=== PATIENT | male | born 1955 ===

== ENCOUNTER 2022-09-24 14:56 | Inpatient (IN) | payer MEDICARE ==
[~2022-09-24] VITALS: Ht 172.7 cm; Wt 85.6 kg
[2022-09-24] MEDS ORDERED: INSULANI SC (15:45)
[2022-09-24] MEDS ORDERED: ASPI81CH PO (15:45)
[2022-09-24] MEDS ORDERED: FURO40 PO (15:46)
[2022-09-24] MEDS ORDERED: METO25ER PO (15:47)
[2022-09-24] MEDS ORDERED: SPIR25 PO (15:47)
[2022-09-24] MEDS ORDERED: VALSARTAN40 MG PO (15:48)
[2022-09-24] MEDS ORDERED: 1/2 NS 250ml250 ML (15:48)
--- NOTE | 2022-09-24 16:19 | NUR ---
admittion from [facility] PATIENT ALERT AND ORIENTED X 4. HE AMBULATED TO BED FROM [facility]. HE HAS TWO IV'S TO LEFT ARM AND LEFT HAND. HE HAS HEPARIN DRIP GOING AT 12U/KG/HR AND NITRO DRIB GOING AT 20MCG/HR. HE DOES NOT COMPLAIN OF CHEST PAIN ON ADMIT. HIS BP IS 130/90'S AND PULSE 80'S. AFEBRILE. ON ROOM AIR WITH RR 20 AN D SAO2 AT 96%. HE STATES HE HAS NOT ATE SINCE YESTERDAY AND IS QUITE HUNGRY. LUNGS ARE CLEAR, S1S2 HEART TONES AUSCULTATED SCANT EDEMA TO LE BILAT. PPPX4 EXT. +JUDE. PATIENT TALKING ON PHONE WITH FAMILY. HE PUT IS BROTHER AND SON ON THE INFO TO GIVE LIST. HE WANTS TO BE A FULL CODE AND WANTS EVERYTHING DONE IF NECESSARY STATED BY HIM TO THIS NURSE. HE HAS NOT VOIDED OF YET BUT STATES HE HAS A SLOW STREAM WHEN HE URINATES. HE HAS NUMBNESS TO HIS FEET AND LEFT HAND AT TIMES. HE HAS HAD A SIGNIFICANT CARDIAC HISTORY. DR CAMARA TO COME SEE PATIENT. AWAITING NEW ADMIT ORDERS.
[2022-09-24 17:02] LABS: Hemoglobin 13.5 g/dL (13.5-17.5); Mean Platelet Volume 10.7 fL (9.1-12.4); Platelet Count 173 K/mm3 (150-400)
[2022-09-24 17:21] LABS: Anti-Xa UFH, PHA Monitoring 0.35 IU/mL; International Normalized Ratio 1.04; Prothrombin Time Results 10.9 Sec (9.7-11.5)
[2022-09-24 17:54] LABS: Bun/Creatinine Ratio 15.4 (12.0-20.0); Calcium, Blood 8.5 mg/dL (8.5-10.1); Creatinine, Blood 0.85 mg/dL (0.60-1.20)
--- NOTE | 2022-09-24 18:10 | NUR ---
END OF SHIFT NOTE PATIENT ALERT/O X 4 HE IS MOVING HIMSELF IN BED. HE IS NOW EATTING FOOD. PLAN FOR HIM TO GO TO COACH OPERATOR IN AM AFTER ECHO COMPLETE. HEPARIN DRIP GOING AT 12U/KG/HR AND NITRO STILL AT 20MCG/HR. PHARMACY TO MANAGE HEPARIN DRIP TITRATION RATES. WAITING LAB RESULTS FROM RECIENT LAB DRAW. GLUCOSE WAS 201 AND COVERAGE WAS 2 UNIT/SQ
--- NOTE | 2022-09-24 22:14 | NUR ---
ASSUMED CARE/CALL TO MD ASSUMED CARE AT 1900. PT A/O X 4. COOPERATIVE W/ CARE. NITRO AT 18MCG/MIN. HEPARIN AT 15 UNITS/KG/HR. VSS. ON RA W/ SPO2 GREATER THAN 90%. PT DENIES CHEST PAIN AT THIS TIME. CALL MADE TO DR ALVARADO REGARDING NO NITRO GTT ORDER. ORDERS RECEIVED TO ADD IT TO [facility] BUT TITRATE OFF. NITRO TITRATED OFF AT 1939. CALL MADE TO HOSP REGARDING INSULIN ORDER CHANGE AND BLOOD GLUCOSE LEVEL. ORDER RECEIVED TO HOLD THE HUMALOG AND GIVE 10 UNITS OF LANTUS NOW.
[2022-09-25 01:19] LABS: Hematocrit 38.5 % (37.0-53.0); Hemoglobin 13.5 g/dL (13.5-17.5); Mean Corpuscular HGB 31.3 pg (26.0-34.0); Mean Corpuscular HGB Conc 35.1 g/dL (31.5-36.5); Mean Corpuscular Volume 89 fL (80-100); Mean Platelet Volume 10.8 fL (9.1-12.4); Platelet Count 163 K/mm3 (150-400); RDW Coefficient Variation 13.4 % (11.7-14.2); RDW Standard Deviation 43.8 fL (35.1-46.3); Red Blood Cell Count 4.31 M/mm3 (4.30-5.90)
[2022-09-25 01:39] LABS: Alanine Aminotransfer (ALT/SGP 49 U/L (12-78); Albumin, Blood 2.9 g/dL (3.4-5.0); Alk Phos 105 U/L (50-136); Anion Gap 7 mmol/L (6-16); Aspartate Aminotrans (AST/SGOT 34 U/L (12-37); Bilirubin, Direct 0.2 mg/dL (0.0-0.3); Bilirubin, Indirect 0.8 mg/dL (0.1-0.7); Blood Urea Nitrogen 13 mg/dL (8-24); Bun/Creatinine Ratio 13.8 (12.0-20.0); CHOL/HDL RATIO 3.6; CO2, Blood 25 mmol/L (21-32); Chloride, Blood 106 mmol/L (98-108); Cholesterol 109 mg/dL (50-200); Creatinine, Blood 0.94 mg/dL (0.60-1.20); Globulin, Blood 2.9 g/dL (2.2-4.0); Glomerular Filtration Rate 89 (60-); Glucose, Blood 243 mg/dL (70-99); HDL Cholesterol 30 mg/dL (>39); LDL/HDL RATIO 1.7; Low Density Lipoprotein Chol 51 mg/dL (0-110); Magnesium, Blood 1.7 mg/dL (1.6-2.4); Phosphorus, Blood 2.9 mg/dL (2.5-4.9); Potassium, Blood 3.8 mmol/L (3.5-5.5); Sodium, Blood 138 mmol/L (136-145); Total Protein, Blood 5.8 g/dL (6.4-8.2); Triglycerides 138 mg/dL (30-160); Very Low Density Lipoprot Chol 27 mg/dL (6-32)
[2022-09-25 02:41] LABS: Adenovirus Not Detected (NOT DETECT); Bordetella pertussis Not Detected (NOT DETECT); Chlamydophila pneumoniae Not Detected (NOT DETECT); Coronavirus 229E Not Detected (NOT DETECT); Coronavirus HKU1 Not Detected (NOT DETECT); Coronavirus NL63 Not Detected (NOT DETECT); Coronavirus OC43 Not Detected (NOT DETECT); Human Metapneumovirus Not Detected (NOT DETECT); Human Rhinovirus/Enterovirus Not Detected (NOT DETECT); Influenza A/2009-H1 Not Detected (NOT DETECT); Influenza A/H1 Not Detected (NOT DETECT); Influenza A/H3 Not Detected (NOT DETECT); Influenza B Not Detected (NOT DETECT); Mycoplasma pneumoniae Not Detected (NOT DETECT); Parainfluenza Virus 1 Not Detected (NOT DETECT); Parainfluenza Virus 2 Not Detected (NOT DETECT); Parainfluenza Virus 3 Not Detected (NOT DETECT); Parainfluenza Virus 4 Not Detected (NOT DETECT); Respiratory Syncytial Virus Not Detected (NOT DETECT); SARS-Cov-2 (COVID-19), BioFire Not Detected (NOT DETECT)
--- NOTE | 2022-09-25 04:12 | NUR ---
NECK PAIN/DYSPNEA PATIENT C/O NECK PAIN /10 AND SUDDEN RETURN OF DYSPNEA. BP 162/109 MAP 122, SPO2 99% ON ROOM AIR. MORPHINE 2MG IV ADMINISTERED AND NITROGLYCERIN RESTARTED AT 5MG/HR FOR NECK PAIN. 2LPM VIA NC INITIATED FOR DYSPNEA-INCREASED TO 4LPM SHORTLY AFTER WITH IMPROVEMENT IN DYSPNEA AND SPO2 100%. RHTYHM REMAINS UNCHANGED WITH T WAVE INVERSION PRESENT ON LEAD II. NO ST ELEVATION AND NO CP.
--- NOTE | 2022-09-25 06:24 | NUR ---
SHIFT SUMMARY NO ACUTE EVENTS T/O NIGHT. PT SLEPT MOST OF NIGHT. SEE PREVIOUS NOTE REGARDING RESTARTING NITRO AT 5MCG/MIN. PT DENIED CHEST PAIN T/O NIGHT. CURRENTLY ON 4L NC. VSS. HEPARIN AT 15 UNITS/KG/HR. NPO SINCE 0000. PT VOIDING AT BEDSIDE W/ URINAL.
--- NOTE | 2022-09-25 08:38 | NUR ---
CARE OF PT ASSUMED AT 0700. PT AWAKE, 0X3. PT DENIES C/O CHEST PAIN. NGT AT 5MCG, HEP AT 15U/KG/HR. DR ALVARADO IN TO SEE PT AND GAVE VERBAL ORDERS TO DC HEPARIN, NTG, AND TO HOLD LASIX. HEPARIN AND NTG STOPPED. 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 PT HTN; PO MEDS GIVEN.
--- NOTE | 2022-09-25 11:00 | NUR ---
PT TO TAPPER HELPER
--- NOTE | 2022-09-25 12:52 | NUR ---
PT BACK FROM [facility] AT 1230. PT AWAKE, DENIES C/O CHEST PAIN. STILL COMPLAINS OF NECK PAIN TO RIGHT SIDE OF NECK THAT RADIATES TOWARDS RIGHT SHOULDER. PAIN /. DENIES SOB. VSS. RIGHT FEM ART ACCESSED HAS MYNX CLOSURE. AREA STABLE, SOFT, W/O HEMATOMA, SWELLING, OR BLEEDING. PT EDUCATED, PER DR ALVARADO PT NEEDS TO STAY ON BEDREST 4-6, OKAY TO RAISE HOB 30 DEGREES AFTER 1-2 HRS. OKAY TO EAT; TRAY ORDERED.
--- NOTE | 2022-09-25 14:49 | NUR ---
DR GARVEY IN TO SEE PT. PT CAUGHT CHEWING TOBACCO BY DR GARVEY. PT EDUCTAED, CHEW CUP DISGARDED, PATCH ORDERED AND PLACED. RIGHT GROIN REMAINS STABLE. RIGHT GROIN CHECK AND CIRC CHECK TO LE Q15MIN X4, Q 30MIN X2, AND NOW Q1HR.
--- NOTE | 2022-09-25 16:24 | NUR ---
TROPONIN GIVEN TO DR ALVARADO, DR ALVARADO UPDATED ON RIGHT NECK/SHOULDER PAIN AND DOESNT FEEL IT IS CARDIAC RELATED. HEATING PAD PLACED ON AREA. RIGHT GROIN REMAINS STABLE.
--- NOTE | 2022-09-25 20:05 | NUR ---
ASSUMED CARE/CALL TO MD ASSUMED CARE AT 1900. PT IRRITABLE AND C/O R NECK PAIN NOT IMPROVED WITH HEAT, TYLENOL, OR MORPHINE. CALL TO HOSP AND ORDER RECEIVED FOR 5MG FLEXERIL. PT A/O X 4. ON RA W/ SPO2 GREATER THAN 90%. VSS. BRP W/ ONE PERSON ASSIST. R GROIN ACCESS SOFT, W/O HEMATOMA, OR S/S OF BLEEDING. PT EDUCATED ON CALLING FOR ASSISSTANCE BEFORE GETTING OOB. PT VERBILIZES UNDERSTANDING. DR ALVARADO CALLED AND PT MADE PCU STATUS.
--- NOTE | 2022-09-26 05:59 | NUR ---
SHIFT SUMMARY NO ACUTE EVENTS T/O NIGHT. CALM AND COOPERATIVE W/ CARE. PT SLEPT MOST OF NIGHT. VSS. PT UP TO BEDSIDE TO VOID. NO C/O CHEST PAIN. PT C/O ACID REFLEX THIS AM. AND CALL MADE TO HOSP. ORDERS RECEIVED. NECK PAIN IMPROVED WITH FLEXERIL. WILL REPORT OFF TO ONCOMING RN.
--- NOTE | 2022-09-26 07:05 | NUR ---
Assumed care. Report received from nightshift RN. Pt sleeping at this time, vs stable, no acute needs. Will continue to monitor.
--- NOTE | 2022-09-26 09:00 | NUR ---
IN TO SEE PT. SET FOR DISCHARGE INSTRUCTIONS TO FOLLOW. PT WILL BE STAYING IN [facility] WITH [facility] IN [facility]. RECOMMENDS HE FOLLOW UP HERE WITH 'S GROUP. PT AGREES.
[2022-09-26] MEDS ORDERED: ATORVASTATIN CA80 M1 PO (09:45)
[2022-09-26] MEDS ORDERED: CLOP75 PO (09:45)
[2022-09-26] MEDS ORDERED: LOSA50 PO (09:46)
[2022-09-26] MEDS ORDERED: NICO21TP TOP (09:47)
--- NOTE | 2022-09-26 10:18 | NUR ---
DISCHARGE ORDERS RECEIVED, INSTRUCTIONS AND TEACHING PRINTED, SHARED WITH PATIENT, QUESTIONS ANSWERED. PT IS DRESSED AND IS WANTING TO HAVE ALL HIS MONITORS OFF, ASKED HIM TO PLEASE KEEP HIS HEART MONITOR ON AND ONE IV IN UNTIL HIS FAMILY HAS ARRIVED. PT DENIES ANY COMPLAINTS AT THIS TIME.
--- NOTE | 2022-09-26 12:00 | NUR ---
1145 FAMILY HAS ARRIVED TO TAKE PATIENT HOME. HIS IV IS REMOVED, LEADS TAKEN OFF, BELONGINGS CHECKED. AMBULATED TO DISCHARGE CARE OF BROTHER AND SISTER IN LAW.
== END 2022-09-26 11:50 | disposition home or self-care (01) | DRG 281 ==
LOC: ICUW 14:56
PROVIDERS: Internal Medicine Cardiovascular Disease; ADMIT Internal Medicine
PROC: 4A023N7 Measurement of Cardiac Sampling and Pressure, Left Heart, Percutaneous Approach (ICD-10-PCS; principal; 2022-09-25)
PROC: B215YZZ Fluoroscopy of Left Heart using Other Contrast (ICD-10-PCS; 2022-09-25)
PROC: B211YZZ Fluoroscopy of Multiple Coronary Arteries using Other Contrast (ICD-10-PCS; 2022-09-25)
PROC: B218YZZ Fluoroscopy of Left Internal Mammary Bypass Graft using Other Contrast (ICD-10-PCS; 2022-09-25)
PROC: B213YZZ Fluoroscopy of Multiple Coronary Artery Bypass Grafts using Other Contrast (ICD-10-PCS; 2022-09-25)
PROC: B24BZZ3 Ultrasonography of Heart with Aorta, Intravascular (ICD-10-PCS; 2022-09-25)
DX: I21.4 Non-ST elevation (NSTEMI) myocardial infarction (principal); I42.8 Other cardiomyopathies; I50.22 Chronic systolic (congestive) heart failure; Z20.822 Contact with and (suspected) exposure to COVID-19; Z28.21 Immunization not carried out because of patient refusal; Z91.14 Patient's other noncompliance with medication regimen; E78.5 Hyperlipidemia, unspecified; I11.0 Hypertensive heart disease with heart failure; E11.9 Type 2 diabetes mellitus without complications; I25.10 Atherosclerotic heart disease of native coronary artery without angina pectoris; Z71.6 Tobacco abuse counseling; Z87.891 Personal history of nicotine dependence; Z95.1 Presence of aortocoronary bypass graft; Z95.4 Presence of other heart-valve replacement; Z88.6 Allergy status to analgesic agent; Z79.82 Long term (current) use of aspirin; Z79.899 Other long term (current) drug therapy
CPT/HCPCS: 0202U; 36415; 76937; 80048; 80061; 80076; 82947; 83036; 83735; 83880; 84100; 84484; 85014; 85018; 85027; 85049; 85520; 85610; 85730; 93005; 93010; 93455; 99152; 99153; A9270; C1760; C1769; C1894; C8929; J1644; J1815; J2250; J2270; J3010; J7030; J7050; Q9957; Q9967